=== PATIENT | male | born 1955 | race Caucasian/White ===

== ENCOUNTER 2021-07-18 18:23 | Emergency (ER) | payer OTHER ==
[2021-07-18 19:30] VITALS: TEMP 97.7; BMI 30.2
[2021-07-18 20:16] LABS: HEMATOCRIT 40.3 % (35.4-49); HEMOGLOBIN 13.4 GM/dl (11.7-16.9); MCH 31.6 pg (25.7-33.7); MCHC 33.2 g/dl (32.0-35.9); MEAN PLT VOLUME 7.5 fl (7.5-11.1); PLATELET COUNT 178 10^3/uL (134-434); RBC 4.24 M/mm3 (4.00-5.60); RDW 12.2 % (11.9-15.9); WHITE BLOOD COUNT 9.7 K/mm3 (4.0-10.8)
[2021-07-18 20:28] LABS: ALBUMIN 4.2 g/dl (3.4-5.0); ALK PHOS 44 U/L (45-117); ANION GAP 9 MMOL/L (8-16); CALCIUM 8.7 mg/dl (8.5-10); CHLORIDE 104 mmol/L (98-107); CO2 22 mmol/L (21-32); CREATININE 1.4 mg/dl (0.55-1.3); GLUCOSE,RANDOM 124 mg/dl (74-106); SGOT/AST 30 U/L (15-37); SGPT/ALT 37 U/L (13-61); SODIUM 135 mmol/L (136-145); TOT PROT 7.3 g/dl (6.4-8.2)
[2021-07-18 20:58] LABS: PLATELET ESTIMATE ADEQUATE
[2021-07-18 21:39] VITALS: BP 123/68; PULSE 74
== END 2021-07-18 21:43 | disposition home or self-care (01) ==
LOC: FER 18:23
DX: R55 Syncope and collapse (principal)
CPT/HCPCS: 36415; 70450-TC; 80053; 81003; 82550; 82553; 84484; 85025; 93005; 99284-25

== ENCOUNTER 2022-08-03 07:44 | Day surgery (SDC) | payer OTHER ==
[2022-07-30 12:08] VITALS: BMI 31.4
[2022-08-03] MEDS ORDERED: LIDOCAINE HCL/PF 2% SDV 5ML VIAL ONE (08:04)
[2022-08-03] MEDS ORDERED: PROPOFOL 80 ML ONE (08:05)
[2022-08-03 08:57] VITALS: TEMP 97
[2022-08-03 09:23] VITALS: PULSE 75
[2022-08-03 09:41] VITALS: BP 130/76; RESP 18
== END 2022-08-03 09:41 | disposition home or self-care (01) ==
LOC: FASU-ENDO 07:44
PROVIDERS: ATTEND Internal Medicine Gastroenterology
PROC: 0DBK8ZX Excision of Ascending Colon, Via Natural or Artificial Opening Endoscopic, Diagnostic (ICD-10-PCS; principal; 2022-08-03 08:32)
DX: Z12.11 Encounter for screening for malignant neoplasm of colon (principal); K57.30 Diverticulosis of large intestine without perforation or abscess without bleeding; K63.5 Polyp of colon
CPT/HCPCS: 88305-TC

== ENCOUNTER 2025-03-16 06:10 | Day surgery (SDC) | payer OTHER ==
[2025-03-14 15:07] VITALS: BMI 30.9
[2025-03-16] MEDS ORDERED: LIDOCAINE HCL/PF 1% SDV 5ML VIAL ONE (07:22)
[2025-03-16] MEDS ORDERED: DEXAMETHASONE SOD PHOSPHATE 10 MG/1 ML VIAL ONE (07:23)
[2025-03-16 08:09] VITALS: TEMP 97.9
[2025-03-16] MEDS ORDERED: ACETAMINOPHEN 500 MG TABLET (FP) PO PRN (09:30)
[2025-03-16] MEDS: IOHEXOL 180 MG/1 ML ML IJ ONE ×2 (10:07)
[2025-03-16] MEDS: LIDOCAINE HCL 1% PRESERVATIVE FREE - 30ML VIAL IJ ONE ×3 (10:07)
[2025-03-16] MEDS: DEXAMETHASONE SOD PHOSPHATE 10 MG/1 ML VIAL IVPUSH ONE ×3 (10:08→10:13)
[2025-03-16 10:50] VITALS: BP 145/82; PULSE 82; RESP 16
== END 2025-03-16 11:00 | disposition home or self-care (01) ==
LOC: JASU-SURG 06:10
PROVIDERS: ATTEND Pain Medicine Pain Medicine
PROC: 3E0R3BZ Introduction of Anesthetic Agent into Spinal Canal, Percutaneous Approach (ICD-10-PCS; 2025-03-16)
PROC: 3E0R33Z Introduction of Anti-inflammatory into Spinal Canal, Percutaneous Approach (ICD-10-PCS; principal; 2025-03-16 10:30)
DX: M54.16 Radiculopathy, lumbar region (principal)
CPT/HCPCS: 76000-TC-FY; J1100